=== PATIENT | male | born 1975 | race Caucasian/White ===

== ENCOUNTER → 2016-08-09 | Outpatient (CLI) | payer OTHER | LOC: RAD 17:24 | DX: M54.5 Low back pain (principal); M47.817 Spondylosis without myelopathy or radiculopathy, lumbosacral region; M48.07 Spinal stenosis, lumbosacral region | CPT/HCPCS: 72110 ==

== ENCOUNTER → 2016-09-14 | Outpatient (CLI) | payer OTHER | LOC: US 08:29 | DX: R74.8 Abnormal levels of other serum enzymes (principal); R93.2 Abnormal findings on diagnostic imaging of liver and biliary tract | CPT/HCPCS: 76705 ==

== ENCOUNTER → 2020-06-17 | Outpatient (CLI) | payer OTHER ==
[~2020-06-17] MED LIST: ASPIRIN CHEWABL81 MG PO; AZITHROMYCIN500 MG PO; BELSOMRA20 MG PO; CEFUROXIME500 MG PO; CYMBALTA30 MG PO; DAILY VALUE1 EACH PO; FLECAINIDE ACET50 MG PO; FLOMAX 0.4 MG0.4 MG PO; HUMIRA40 MG/0.4 INJ; KLONOPIN1 MG PO; L-THREONINE500 MG PO; LEVAQUIN500 MG PO; MEGA MULTI FOR1 EACH PO; MOBIC15 MG PO; NABUMETONE PO; NORVASC 5 MG TAB5 MG PO; PRAVACHOL40 MG PO; PRAVASTATIN SOD40 MG PO; PROPRANOLOL HCL20 MG PO; TYLENOL W/CODEIN1 E1 PO; ULTRAM50 MG PO; ZANAFLEX4 MG PO; ZOLOFT100 MG PO
== END ==
LOC: KOH-I 06-13 14:30
DX: M50.121 Cervical disc disorder at C4-C5 level with radiculopathy (principal); M48.02 Spinal stenosis, cervical region; M25.78 Osteophyte, vertebrae
CPT/HCPCS: 72141

== ENCOUNTER → 2020-10-23 | Outpatient (CLI) | payer OTHER | LOC: KOH-I 11:19 | DX: M48.02 Spinal stenosis, cervical region (principal); M50.30 Other cervical disc degeneration, unspecified cervical region | CPT/HCPCS: 72125 ==

== ENCOUNTER → 2020-12-04 | Outpatient (CLI) | payer OTHER ==
[~2020-12-04] MED LIST changes: +NABUMETONE750 MG PO; +VITAMIN C PO; +VITAMIN C500 M4 PO; +VITAMIN D3125 MCG PO; +ZINC PO
== END ==
LOC: RAD 09:04
DX: Z01.818 Encounter for other preprocedural examination (principal)
CPT/HCPCS: 71046; 80048; 81001; 85027; 85610; 85730; 87081; 87086; 93005; 94060; 94729

== ENCOUNTER → 2021-01-07 | Day surgery (SDC) | payer OTHER ==
[2021-01-07 11:45] LABS: HEMOGLOBIN 15.3 gm/dl (14.0-17.5); RED BLOOD COUNT 5.13 M/UL (4.20-5.50); WHITE BLOOD COUNT 5.4 K/UL (4.5-11.0)
[2021-01-07 12:00] LABS: BUN/CREATININE RATIO 8 (0-10)
== END | disposition home or self-care (01) ==
LOC: OPSV2 10:00
PROVIDERS: Orthopaedic Surgery
DX: Z01.812 Encounter for preprocedural laboratory examination (principal); M54.12 Radiculopathy, cervical region
CPT/HCPCS: 36415; 80048; 81001; 85027; 85610; 85730; 87086

== ENCOUNTER → 2021-01-14 | Outpatient (CLI) | payer OTHER | LOC: HEART 5 12:52 | DX: Z01.810 Encounter for preprocedural cardiovascular examination (principal); I47.2 Ventricular tachycardia | CPT/HCPCS: 93306 ==

== ENCOUNTER → 2021-03-25 | Outpatient (CLI) | payer OTHER ==
[~2021-03-25] MED LIST changes: +MAGNESIUM MALATE
[2021-03-25 12:20] LABS: HEMOGLOBIN 15.5 gm/dl (14.0-17.5); RED BLOOD COUNT 5.08 M/UL (4.20-5.50); WHITE BLOOD COUNT 7.8 K/UL (4.5-11.0)
[2021-03-25 12:38] LABS: BUN/CREATININE RATIO 7 (0-10)
== END ==
LOC: OPSV2 11:00 → EDSTATUS 11:00 → OPSV2 11:17
PROVIDERS: Orthopaedic Surgery
DX: Z01.818 Encounter for other preprocedural examination (principal); G04.91 Myelitis, unspecified; M54.12 Radiculopathy, cervical region
CPT/HCPCS: 36415; 71046; 80048; 81001; 85027; 85610; 85730; 93005

== ENCOUNTER → 2021-03-31 | Outpatient (CLI) | payer OTHER ==
[~2021-03-31] MED LIST changes: +HUMIRA PEN40 MG/0.4 SQ; -MAGNESIUM MALATE; +MAGNESIUM MALATE PO; +TIZANIDINE HCL4 MG PO; -VITAMIN C PO; +VITAMIN C1000 MG PO; -ZINC PO; +ZINC50 M3 PO
[2021-03-31 14:03] LABS: BUN/CREATININE RATIO 7 (0-10)
== END ==
LOC: LAB 12:00
PROVIDERS: Orthopaedic Surgery
DX: Z01.812 Encounter for preprocedural laboratory examination (principal)
CPT/HCPCS: 36415; 80048; 86850; 86900; 86901

== ENCOUNTER 2021-04-01 05:23 | Inpatient (IN) | payer OTHER ==
[~2021-04-01] VITALS: Ht 177.8 cm; Wt 101.6 kg
[~2021-04-01 05:23] MED LIST changes: -HUMIRA PEN40 MG/0.4 SQ; -TIZANIDINE HCL4 MG PO
[2021-04-01 16:04] LABS: HEMOGLOBIN 14.3 gm/dl (14.0-17.5); RED BLOOD COUNT 4.66 M/UL (4.20-5.50); WHITE BLOOD COUNT 12.8 K/UL (4.5-11.0)
[2021-04-02 05:22] LABS: HEMOGLOBIN 14.7 gm/dl (14.0-17.5); RED BLOOD COUNT 4.79 M/UL (4.20-5.50); WHITE BLOOD COUNT 11.6 K/UL (4.5-11.0)
[2021-04-02 05:45] LABS: BUN/CREATININE RATIO 9 (0-10)
[2021-04-02] MEDS ORDERED: TIZANIDINE HCL4 MG PO (11:42)
[2021-04-02] MEDS ORDERED: HUMIRA PEN40 MG/0.4 SQ (11:43)
== END 2021-04-02 15:45 | disposition home or self-care (01) | DRG 30 ==
LOC: OR 05:23 → CCU 17:00 → OR 17:26 → CCU 17:27
PROVIDERS: ADMIT Orthopaedic Surgery
PROC: 4A10X4G Monitoring of Central Nervous Electrical Activity, Intraoperative, External Approach (ICD-10-PCS; 2021-04-01)
PROC: 0RG20A0 Fusion of 2 or more Cervical Vertebral Joints with Interbody Fusion Device, Anterior Approach, Anterior Column, Open Approach (ICD-10-PCS; principal; 2021-04-01 07:30)
PROC: 0RB30ZZ Excision of Cervical Vertebral Disc, Open Approach (ICD-10-PCS; 2021-04-01 07:30)
DX: M54.12 Radiculopathy, cervical region (principal); I10 Essential (primary) hypertension; E78.5 Hyperlipidemia, unspecified; Z20.822 Contact with and (suspected) exposure to COVID-19; K76.0 Fatty (change of) liver, not elsewhere classified; G47.33 Obstructive sleep apnea (adult) (pediatric); K21.9 Gastro-esophageal reflux disease without esophagitis; M79.7 Fibromyalgia; E66.01 Morbid (severe) obesity due to excess calories; L40.50 Arthropathic psoriasis, unspecified; R26.81 Unsteadiness on feet; Z86.16 Personal history of COVID-19; Z90.49 Acquired absence of other specified parts of digestive tract; Z82.49 Family history of ischemic heart disease and other diseases of the circulatory system; Z80.42 Family history of malignant neoplasm of prostate; Z87.01 Personal history of pneumonia (recurrent); Z68.32 Body mass index [BMI] 32.0-32.9, adult
CPT/HCPCS: 36415; 72040; 72050; 76000; 80048; 82962; 85027; 94660; 94760; 97161; 97166; C1713; C1762; C1781; J0690; J1040; J1100; J1170; J2001; J2250; J2405; J2704; J3010; J3370; J7040; J7120

== ENCOUNTER → 2021-09-14 | Outpatient (CLI) | payer OTHER ==
[~2021-09-14] MED LIST changes: +HUMIRA PEN40 MG/0.4 SQ; +TIZANIDINE HCL4 MG PO
== END ==
LOC: US 09:17
DX: K76.0 Fatty (change of) liver, not elsewhere classified (principal)
CPT/HCPCS: 76705

== ENCOUNTER → 2022-01-04 | Outpatient (CLI) | payer OTHER ==
[~2022-01-04] MED LIST changes: +PROZAC40 MG PO
[2022-01-04 11:04] LABS: HEMOGLOBIN 15.2 gm/dl (14.0-17.5); RED BLOOD COUNT 5.2 M/UL (4.20-5.50); WHITE BLOOD COUNT 6.2 K/UL (4.5-11.0)
[2022-01-04 11:35] LABS: BUN/CREATININE RATIO 11 (0-10)
== END ==
LOC: OPSV2 10:00 → EDSTATUS 10:00 → OPSV2 10:04
PROVIDERS: Orthopaedic Surgery
DX: Z01.818 Encounter for other preprocedural examination (principal)
CPT/HCPCS: 71046; 80048; 81001; 85027; 87086; 93005